=== PATIENT | male | born 1955 | race Caucasian/White ===

== ENCOUNTER → 2018-01-25 | Outpatient (CLI) | payer BC | END | disposition home or self-care (01) | LOC: PCVCIMAG 11:54 | DX: I25.10 Atherosclerotic heart disease of native coronary artery without angina pectoris (principal); R09.89 Other specified symptoms and signs involving the circulatory and respiratory systems; I73.9 Peripheral vascular disease, unspecified; E78.5 Hyperlipidemia, unspecified; Z82.49 Family history of ischemic heart disease and other diseases of the circulatory system; Z87.891 Personal history of nicotine dependence | CPT/HCPCS: 93325; 93351; 93880 ==

== ENCOUNTER → 2018-12-21 | Outpatient (CLI) | payer BC ==
[~2018-12-21] MED LIST: REGADENOSON 0.4 MG/5 ML DISP.SYRIN. IV ONE
--- NOTE | 2018-12-21 15:53 | PCVCIMAG ---
APPROVED REPORT Imaging Protocol: Rest Tc-99m/Stress Tc-99m 1 day Study performed: 12/21/2018 14:10:43 Patient Location: Out-Patient Stress Nurse: Hayley Thompson RN RI Tech:Sherri LISSA ArtMT Ht: 6 ft 2 in Wt: 235 lbs BSA: 2.33 m2 HR: 90 bpm BP: 128/85 mmHg BMI: 30.16 Rhythm: Normal Sinus Rhythm Medical History Medical History: Hyperlipidemia, CVD, Former Smoker Medications: Bystolic, Atorvastatin, ASA Allergies: Cephalexin Cardiac Risk Factors: Age, FHX of CAD Pretest Chest Pain Characteristics: No chest pain Exercise History: Physically active Meds Held (24 hrs): Bystolic Resting Data Rest SPECT myocardial perfusion imaging was performed in supine position 45 minutes following the intravenous injection of 11.2 mCi of Tc-99m Sestamibi. Time of rest injection: 1330 Date: 12/21/2018 Administration Route: IV Administration Site: Right Hand Pharmacologic Stress Pharmacologic stress test was performed by injecting Regadenoson 0.4 mg IV push over 10-15 seconds immediately followed by the intravenous injection of 35.2 mCi of Tc-99m Sestamibi. Time of stress injection: 1450 Date: 12/21/2018 Administration Route: IV Administration Site: Right Hand Gated Stress SPECT was performed 45 minutes after stress injection. The images were gated to evaluate regional wall motion and calculate left ventricular ejection fraction. Stress Test Details Stress Test: Pharmacologic stress was paired with low level exercise. Reason for pharmacologic stress test: physical limitation. HRMax Heart Rate (APMHR): 156 bpm Resting HR: 90 bpmTarget HR (85% APMHR): 132 bpm Max HR Achieved: 118 bpm % of APMHR: 75 Recovery HR: 93 bpm BP Resting BP: 128/85 mmHg Max BP: 143/87 mmHg Recovery BP: 121/74 mmHg ECG Resting ECG: Normal Sinus Rhythm Stress ECG: Sinus Tachycardia ST Change: Non-ischemic Recovery ECG: Sinus Rhythm Clinical Reason for Termination: Completed protocol Stress Symptoms: Dyspnea Exercise duration: 4 min 00 sec Exercise capacity: 1.6 METs Symptoms resolved during recovery. Study Quality Study: Good Artifact: Mild Diaphragmatic artifact Study Data Post stress, the left ventricular ejection was 68%.. SSS: 0 SRS: 1 SDS: 0 TID = 1.06. Perfusion There are small areas of mildly reduced uptake in the basal and apical segments of the inferior wall which are seen on the stress images as well as the resting images. This area thickens and moves normally and is most consistent with attenuation artifact. Wall Motion Normal left ventricular wall motion. Nuclear Conclusion ECG Findings: negative for ischemia Clinical Findings: non-diagnostic Nuclear Findings: negative for ischemia Exercise Capacity: not assessed Left Ventricular Function: normal This study is of low probability for inducible ischemia or prior infarct. Normal global and segmental LV systolic function. Artifact: Mild Diaphragmatic artifact
== END | disposition home or self-care (01) ==
LOC: PCVCIMAG 13:00
PROVIDERS: ATTEND Internal Medicine
DX: I25.10 Atherosclerotic heart disease of native coronary artery without angina pectoris (principal); E78.5 Hyperlipidemia, unspecified; R68.84 Jaw pain; R42 Dizziness and giddiness; Z87.891 Personal history of nicotine dependence
CPT/HCPCS: 78452; 93017; A9500; J2785

== ENCOUNTER → 2019-05-22 | Outpatient (CLI) | payer BC ==
--- NOTE | 2019-05-22 15:41 | PCVCIMAG ---
APPROVED REPORT Indications Stenosis PRE-OP Doppler Spectral Velocity Analysis PSV / EDVPSV / EDV ECA (R) 62 / 13 cm/sECA (L) 89 / 16 cm/s dICA (R) 50 / 22 cm/sdICA (L) 55 / 26 cm/s Shabbir (R) 54 / 24 cm/smICA (L) 57 / 27 cm/s pICA (R) 35 / 12 cm/spICA (L) 52 / 23 cm/s Bulb (R) 48 / 13 cm/sBulb (L) 49 / 23 cm/s dCCA (R) 59 / 16 cm/sdCCA (L) 75 / 26 cm/s mCCA (R) 65 / 18 cm/smCCA (L) 81 / 24 cm/s Vert (R) 32 / 10 cm/sVert (L) 38 / 14 cm/s ICA/CCA 0.83ICA/CCA 0.70 Basic Measurements Blood Pressure: Pulses: Right Left RightLeft Brachial(Sitting) 118/33etJj296/80mmHgTemporal Real Time B-Mode Imaging Vert. (R)AntegradeVert. (L)Antegrade Findings The right carotid bulb has mild plaque. The right proximal internal carotid artery shows no significant stenosis. The right common carotid artery shows no significant stenosis. The right external carotid artery shows no significant stenosis. The left carotid bulb has mild calcified plaque. The left proximal internal carotid artery shows no significant stenosis. The left common carotid artery shows no significant stenosis. The left external carotid artery shows no significant stenosis. Conclusion 1. Mild bilateral plaquing without significant stenosis. 2. Antegrade vertebral flow.
== END | disposition home or self-care (01) ==
LOC: PCVCIMAG 14:55
PROVIDERS: ATTEND Internal Medicine
DX: Z01.810 Encounter for preprocedural cardiovascular examination (principal); I65.23 Occlusion and stenosis of bilateral carotid arteries; R42 Dizziness and giddiness; E78.5 Hyperlipidemia, unspecified; E78.00 Pure hypercholesterolemia, unspecified
CPT/HCPCS: 93880